=== PATIENT | female | born 1980 | race American Indian/Alaskan Native ===

== ENCOUNTER 2017-04-18 12:34 | Emergency (ER) | payer OTHER ==
[2017-04-18 12:43] VITALS: BP 138/91
--- NOTE | 2017-04-18 15:25 | Emergency Department Report ---
Chief Complaint: Back Pain/Injury Stated Complaint: BACK PAIN Time Seen by Provider: 04/18/17 15:20 - HPI History of Present Illness: Pt is a 36 yo female who stated she has been doing kick boxing last pm and noted pain in her back. Pt states she had a prior muscle relaxant Tizanidine. Pt states she took Motrin this am . Pt noted no relief;lnmp was 03/30/17.l Pt denied any injury specifically. - ROS Review of Systems: ROS: all systems reviewed neg except as noted per HPI PE: awake, alert and in no distress HEENT: eomi, perrl; mmm Neck: supple Lungs: clear bilat Heart: RRR; no m/g/r Abd: soft, +BS, nd, nt; no peritoneal signs Ext: no edema; - Exam Vital Signs: Vital Signs 04/18/17 12:41 Temperature 97.7 F Pulse Rate 89 Respiratory 18 Rate Blood Pressure 138/91 O2 Sat by Pulse 99 Oximetry Physical Exam: ROS: all systems reviewed neg except as noted per HPI PE: awake, alert and in no distress HEENT: eomi, perrl; mmm Neck: supple Lungs: clear bilat Heart: RRR; no m/g/r Abd: soft, +BS, nd, nt; no peritoneal signs Ext: no edema; Back: tenderness left lower lumbar paraspinal muscles ext; pulses 2+ Neuro: awake, alert in no acute distress strength: bilat ue and lower extremities gait: normal MSE screening note: Focused history and physical exam performed. Due to findings the following was ordered: ED Disposition for MSE Condition: Stable Referrals: PRIMARY CARE, [Primary Care Provider] - 3-5 Days
== END 2017-04-18 16:06 | disposition home or self-care (01) ==
LOC: ED 12:34
DX: M54.9 Dorsalgia, unspecified (principal)
CPT/HCPCS: 99282